=== PATIENT | male | born 1970 | race Caucasian/White ===

== ENCOUNTER 2017-09-01 12:52 | Emergency (ER) | payer MEDICAID, OTHER ==
[~2017-09-01] VITALS: Ht 191.8 cm; Wt 86.0 kg
[~2017-09-01 12:52] MED LIST: CEFU500T66 PO; HYDR-3972 PO; MULT-342 PO
[2017-09-01 14:32] LABS: BASOPHILS % (AUTO) 0.3 % (0-1); EOSINOPHILS % (AUTO) 0 % (0-6); HEMATOCRIT 41.6 % (42.0-52.0); HEMOGLOBIN 14.4 g/dl (14.0-17.9); LYMPHOCYTES # (AUTO) 0.8 X10'3 (1.1-4.8); LYMPHOCYTES % (AUTO) 5.3 % (21-51); MEAN CORPUSCULAR HEMOGLOBIN 29.4 PG (27.0-31.0); MEAN CORPUSCULAR HGB CONC 34.5 % (33.0-36.5); MEAN PLATELET VOLUME 9.6 FL (7.4-10.4); MONOCYTES # (AUTO) 0.6 X10'3 (0-0.9); MONOCYTES % (AUTO) 4.1 % (2-12); NEUTROPHILS # (AUTO) 13.5 X10'3 (1.8-7.7); NEUTROPHILS % (AUTO) 90.3 % (42-75); PLATELET COUNT 105 X10'3 (140-440); RED BLOOD COUNT 4.89 X10'6 (4.70-6.10); RED CELL DISTRIBUTION WIDTH 13.6 % (11.5-14.5); WHITE BLOOD COUNT 14.9 X10'3 (4.5-11.0)
[2017-09-01 14:56] LABS: ALANINE AMINOTRANSFERASE 20 U/L (12-78); ALBUMIN 3.5 G/DL (3.4-5.0); ALBUMIN/GLOBULIN RATIO 1.1 (1.1-1.5); ALKALINE PHOSPHATASE 53 IU/L (46-116); ANION GAP 9 (8-16); ASPARTATE AMINO TRANSFERASE 21 U/L (10-37); BILIRUBIN,TOTAL 0.4 MG/DL (0.1-1.0); BLOOD UREA NITROGEN 16 MG/DL (7-18); BUN/CREATININE RATIO 13.6 (5.4-32.0); CALCIUM 8.5 MG/DL (8.5-10.1); CHLORIDE 101 MMOL/L (99-107); CREATININE 1.18 MG/DL (0.60-1.10); ETHANOL < 0.010 GM/DL (0.0-0.010); GLUCOSE 126 MG/DL (70-104); POTASSIUM 3.4 MMOL/L (3.5-5.1); SODIUM 135 MMOL/L (135-145); TOTAL CARBON DIOXIDE 24.8 MMOL/L (24-32); TOTAL PROTEIN 6.8 G/DL (6.4-8.2); eGFR 66 ML/MIN
[2017-09-01 15:42] LABS: URINE AMPHETAMINE SCREEN NEGATIVE (Neg); URINE BARBITUATE SCREEN NEGATIVE (Neg); URINE BENZODIAZEPINES SCREEN NEGATIVE (Neg); URINE CANNABINOID SCREEN POSITIVE (Neg); URINE COCAINE SCREEN NEGATIVE (Neg); URINE METHADONE SCREEN NEGATIVE (Neg); URINE OPIATE SCREEN NEGATIVE (Neg); URINE PHENCYCLIDINE SCREEN NEGATIVE (Neg)
[2017-09-01] MEDS ORDERED: KEP500T PO (16:29)
[2017-09-01] MEDS ORDERED: levetiracetam 250mg tablet PO ONE (16:30)
[2017-09-01 16:57] VITALS: BP 168/88
== END 2017-09-01 17:02 | disposition home or self-care (01) ==
LOC: ER 12:54
DX: R56.9 Unspecified convulsions (principal); R51 Headache; F17.200 Nicotine dependence, unspecified, uncomplicated; F12.90 Cannabis use, unspecified, uncomplicated; Z90.49 Acquired absence of other specified parts of digestive tract; Z79.899 Other long term (current) drug therapy
CPT/HCPCS: 36415; 70450; 80053; 80305; 80320; 85025; 99285

== ENCOUNTER 2017-11-12 09:27 | Outpatient (CLI) | payer MEDICAID ==
[~2017-11-12 09:27] MED LIST changes: +KEP500T PO
== END 2017-11-12 23:59 | disposition home or self-care (01) ==
LOC: RAD 09:27
DX: R56.9 Unspecified convulsions (principal); F17.200 Nicotine dependence, unspecified, uncomplicated
CPT/HCPCS: 95819

== ENCOUNTER 2019-11-21 10:28 | Inpatient (IN) | payer MEDICAID ==
[~2019-11-21] VITALS: Ht 190.5 cm; Wt 90.9 kg
[2019-11-21] MEDS ORDERED: levetiracetam inj 1,000 MG in normal saline 100ml IV soln 90 ML IV STA (10:29)
[2019-11-21] MEDS ORDERED: LORazepam 2 mg/ml vial IV ONE (10:30)
[2019-11-21] MEDS ORDERED: normal saline 1000ML IV soln IVB ONE (10:30)
[2019-11-21] MEDS ORDERED: magnesium 2GM in 50ml NS 50 ML IV ONE (10:30)
[2019-11-21] MEDS ORDERED: levetiracetam-NS 1000mg/100ml 100 ML IV STA (10:34)
--- NOTE | 2019-11-21 10:42 | NUR ---
pt lifted arms up once, but still unable to arouse.
--- NOTE | 2019-11-21 10:45 | NUR ---
dianna bedside wants pt on nc 2 liters.
[2019-11-21 10:50] LABS: BASOPHILS # (AUTO) 0.1 X10'3 (0-0.2); BASOPHILS % (AUTO) 0.6 % (0-1); EOSINOPHILS % (AUTO) 0.2 % (0-6); HEMATOCRIT 47.4 % (42.0-52.0); HEMOGLOBIN 15.5 g/dl (14.0-17.9); LYMPHOCYTES # (AUTO) 1.6 X10'3 (1.1-4.8); LYMPHOCYTES % (AUTO) 9.1 % (21-51); MEAN CORPUSCULAR HEMOGLOBIN 28.7 PG (27.0-31.0); MEAN CORPUSCULAR HGB CONC 32.6 g/dL (33.0-36.5); MEAN CORPUSCULAR VOLUME 88.1 FL (78-98); MEAN PLATELET VOLUME 9.7 FL (7.4-10.4); MONOCYTES # (AUTO) 0.7 X10'3 (0-0.9); NEUTROPHILS # (AUTO) 14.9 X10'3 (1.8-7.7); NEUTROPHILS % (AUTO) 86.1 % (42-75); PLATELET COUNT 133 X10'3 (140-440); RED BLOOD COUNT 5.38 X10'6 (4.70-6.10); RED CELL DISTRIBUTION WIDTH 13.4 % (11.5-14.5); WHITE BLOOD COUNT 17.3 X10'3 (4.5-11.0)
[2019-11-21 11:19] LABS: CLARITY,URINE SLIGHTLY CLOUDY (Clear); COLOR,URINE YELLOW (Yellow); GLUCOSE, URINE NEGATIVE (Neg); KETONES,URINE NEGATIVE (Neg); LEUKOCYTE ESTERASE ,URINE NEGATIVE (Neg); NITRITES, URINE NEGATIVE (Neg); OCCULT BLOOD,URINE LARGE (Neg); PH,URINE 5.5 (4.8-8.0); PROTEIN,URINE 30 mg/dl (Neg); UA COLLECTION TYPE STRAIGHT CATH; UROBILINOGEN,URINE 0.2 E.U/dL (0.2-1.0)
--- NOTE | 2019-11-21 11:19 | NUR ---
2 LITERS OF FLUID IN, PT ON MONITORS TO GO TO CT WITH RYAN QUINTANILLA RN
[2019-11-21 11:22] LABS: ALANINE AMINOTRANSFERASE 34 U/L (12-78); ALBUMIN 4.3 G/DL (3.4-5.0); ALBUMIN/GLOBULIN RATIO 1.1 (1.1-1.5); ALKALINE PHOSPHATASE 60 IU/L (46-116); ANION GAP 27 (8-16); ASPARTATE AMINO TRANSFERASE 34 U/L (10-37); BILIRUBIN,TOTAL 0.3 MG/DL (0.1-1.0); BLOOD UREA NITROGEN 25 MG/DL (7-18); BUN/CREATININE RATIO 15.7 (5.4-32.0); CALCIUM 9.7 MG/DL (8.5-10.1); CHLORIDE 102 MMOL/L (99-107); CREATININE 1.59 MG/DL (0.60-1.10); ETHANOL < 0.010 GM/DL (0.0-0.010); GLUCOSE 195 MG/DL (70-104); POTASSIUM 3.8 MMOL/L (3.5-5.1); SODIUM 140 MMOL/L (135-145); TOTAL PROTEIN 8.1 G/DL (6.4-8.2); eGFR 46 ML/MIN
[2019-11-21 11:23] LABS: CREATINE KINASE 1088 U/L (39-308)
[2019-11-21 11:24] LABS: TOTAL CARBON DIOXIDE 11.1 MMOL/L (24-32)
[2019-11-21 11:26] LABS: HYALINE CASTS 0-3 /LPF (NEGATIVE); MUCUS STRANDS FEW /LPF (Neg); SQUAMOUS EPITHELIAL CELL,UR FEW /LPF (FEW)
[2019-11-21 11:27] LABS: WBC,URINE 0-4 /HPF (0-4)
[2019-11-21 11:29] LABS: AMORPHOUS URATES 3+; BACTERIA,URINE FEW /HPF (Neg)
[2019-11-21 11:30] LABS: URINE AMPHETAMINE SCREEN NEGATIVE (Neg); URINE BARBITUATE SCREEN NEGATIVE (Neg); URINE BENZODIAZEPINES SCREEN POSITIVE (Neg); URINE CANNABINOID SCREEN POSITIVE (Neg); URINE COCAINE SCREEN NEGATIVE (Neg); URINE METHADONE SCREEN NEGATIVE (Neg); URINE OPIATE SCREEN NEGATIVE (Neg); URINE PHENCYCLIDINE SCREEN NEGATIVE (Neg)
--- NOTE | 2019-11-21 11:30 | NUR ---
WILL LYNCHTRAVIS UPDATED. PT LAST NORMAL LAST NIGHT AT 8:30 BED. PT FOUND HIM ON COUCH THIS AM WITH ABRAISON ON HEAD, SEIZING. UNCONTROLLED SHAKING, BREATHING HARD, VOMITED. PT WOKE UP CLEAR 30MIN LATER. DAUGHTER PRESENT, ANOTHER SEIZURE SO THEY CALLED 911. NO HOME MEDS, MJ AND QUIT SMOKING 3 MONTHS AGO. PT NORMAL BASELINE A AND O 4.
--- NOTE | 2019-11-21 11:30 | NUR ---
Patient combative in CT. Spoke to Best Hansen who gives verbal to administer ativan which is over-ridden from omnicell.
[2019-11-21] MEDS ORDERED: LORazepam 2 mg/ml vial ONE (11:32)
--- NOTE | 2019-11-21 11:57 | NUR ---
PT RETURNED FROM CT. PT GIVEN 2MG ATIVAN FOR CONBATIVE BEHAVIOR WHILE IN CT. PIV IN RT HAND WAS PULLED OUT BY PT. MAG AND NS RESTARTED AFTER PT RETURNED TO HIS ROOM
[2019-11-21] MEDS ORDERED: NO HOME MEDS (12:02)
--- NOTE | 2019-11-21 12:59 | NUR ---
CALLED WILL , PT STAYING NIGHT PER SHAI. VERIFIED GLASSES AND PHONE AT BEDSIDE.
--- NOTE | 2019-11-21 14:10 | NUR ---
REORIENTED PT, PT KNOWS NOT TO GET OUT OF BED. PT SAID IF RESTRAINTS REMOVED HE IS LEAVING. NOTIFIED WARE CARRIER THAT PT IS FALL RISK, SHE CALLED NURSING SUP, NO SITTER PROVIDED OR AVAILABLE.
--- NOTE | 2019-11-21 14:47 | NUR ---
RELIEVING RN FOR BREAK, PT RESTING QUIETLY ON GURNEY, RESP EVEN AND UNLABORED
[2019-11-21] MEDS ORDERED: ondansetron/PF 4mg/2ml inj IV PRN (14:55)
[2019-11-21] MEDS ORDERED: magnesium 4gm in 100ml NS 100 ML IV PRN (14:55)
[2019-11-21] MEDS ORDERED: magnesium 2GM in 50ml NS 50 ML IV PRN (14:55)
[2019-11-21] MEDS ORDERED: potassium Cl 20 mEq SR tablet PO PRN ×2 (14:55)
[2019-11-21] MEDS ORDERED: potassium CL 10mEq/100ml bag 100 ML IV PRN ×2 (14:55)
[2019-11-21] MEDS ORDERED: magnesium Cl slow-release 64mg tablet PO PRN (14:55)
[2019-11-21] MEDS ORDERED: acetaminophen 325mg tablet PO PRN (14:55)
--- NOTE | 2019-11-21 16:10 | NUR ---
PT AWAKE AND ALERT, WANTING TO LEAVE. PT INFORMED THAT HE WAS ILL AND THAT IT WAS NOT SAFE FOR HIM TO LEAVE DUE TO BEING ALTERED AND CONFUSED. PT WANTING TO SPEAK WITH THE PROVIDER. JASSON MATHEW NOTIFIED THAT PT WANTED TO TALK TO THE PROVIDER AND WANTING TO LEAVE. PROVIDER SPOKE WITH PT, PT STATED UNDERSTANDING AND 2 POINT RESTRAINTS WERE REMOVED, BED LINENS CHANGED AND GIVEN A CLEAN GOWN. PT'S RN NOTIFIED THAT RESTRAINTS WERE REMOVED
--- NOTE | 2019-11-21 17:19 | NUR ---
SPOKE TO PT UPDATED.
[2019-11-21 20:00] VITALS: BP 113/57
[2019-11-21] MEDS: K and/or MAG REPLACEMENT MC SCH (20:00)
--- NOTE | 2019-11-21 23:27 | NUR ---
Paged hospitalist. [phone] Roxann Bryant, Just admitted for seizure x2, patient very agitated and trying to leave AMA. Please provide orders to help stabilize patient. Hailey [phone]
[2019-11-22 05:39] LABS: BASOPHILS # (AUTO) 0.1 X10'3 (0-0.2); EOSINOPHILS % (AUTO) 0.2 % (0-6); HEMATOCRIT 40.7 % (42.0-52.0); HEMOGLOBIN 13.5 g/dl (14.0-17.9); LYMPHOCYTES # (AUTO) 1.7 X10'3 (1.1-4.8); MEAN CORPUSCULAR HEMOGLOBIN 28.7 PG (27.0-31.0); MEAN CORPUSCULAR HGB CONC 33.2 g/dL (33.0-36.5); MEAN CORPUSCULAR VOLUME 86.4 FL (78-98); MEAN PLATELET VOLUME 10.6 FL (7.4-10.4); MONOCYTES % (AUTO) 9.1 % (2-12); NEUTROPHILS # (AUTO) 8.4 X10'3 (1.8-7.7); NEUTROPHILS % (AUTO) 74.7 % (42-75); PLATELET COUNT 96 X10'3 (140-440); RED BLOOD COUNT 4.71 X10'6 (4.70-6.10); RED CELL DISTRIBUTION WIDTH 13.4 % (11.5-14.5); WHITE BLOOD COUNT 11.3 X10'3 (4.5-11.0)
[2019-11-22 06:00] VITALS: BP 124/77
--- NOTE | 2019-11-22 06:07 | NUR ---
Patient in room PCU 3018. I have received report from Tara MALDONADO and had the opportunity to ask questions and assume patient care.
--- NOTE | 2019-11-22 06:10 | NUR ---
Problems reprioritized. Patient report given, questions answered & plan of care reviewed with Nela MALDONADO. Patient stable at transfer of care.
[2019-11-22 06:11] LABS: ALBUMIN 3.5 G/DL (3.4-5.0); ANION GAP 13 (8-16); BLOOD UREA NITROGEN 18 MG/DL (7-18); BUN/CREATININE RATIO 13.5 (5.4-32.0); CALCIUM 8.8 MG/DL (8.5-10.1); CHLORIDE 107 MMOL/L (99-107); CREATININE 1.33 MG/DL (0.60-1.10); GLUCOSE 99 MG/DL (70-104); MAGNESIUM 2.3 MG/DL (1.5-2.4); POTASSIUM 3.7 MMOL/L (3.5-5.1); SODIUM 143 MMOL/L (135-145); TOTAL CARBON DIOXIDE 22.8 MMOL/L (24-32); eGFR 57 ML/MIN
--- NOTE | 2019-11-22 06:44 | NUR ---
Patient awake in room, opening all drawers looking for his clothes and wallet, states "I am getting out of here", RN explained that if pt is going to leave it will be against medical advise and RN educated that she highly advises against it, patient took off satellite project site monitor and called his /son who stated that they would come roll picker the patient. Patient was okay with reapplying satellite project site monitor, said he would wait for his to call him.
[2019-11-22 07:13] LABS: LARGE PLATELETS FEW
[2019-11-22 07:14] LABS: HYPOGRANULAR PLATELETS MODERATE; PLATELET ESTIMATE DECREASED
[2019-11-22] MEDS: K and/or MAG REPLACEMENT MC SCH (07:48)
--- NOTE | 2019-11-22 07:54 | NUR ---
Sent a page to Dr Trent PAGER ID: [phone] MESSAGE: Nela MALDONADO [phone], Mercedes Bryant, pt trying to leave AMA, I have convinced him to stay, if he stays do you want to order any medications?? Addendum: 11/22/19 at 9879 by Brenda Pelayo RN Spoke with Dr Trent, wants pt to receive Keppra 500mg BID and for RN to order Tele Neurology Consult
[2019-11-22] MEDS ORDERED: levetiracetam 250mg tablet PO SCH (08:00)
[2019-11-22] MEDS ORDERED: levetiracetam 250mg tablet ONE (08:21)
--- NOTE | 2019-11-22 08:29 | NUR ---
Patient refused to let RN perform physical assessment, pt stated "it doesn't matter because I am leaving in a little bit". Patient was okay with taking Keppra. Will continue to monitor the patient closely.
--- NOTE | 2019-11-22 08:51 | NUR ---
Tele neuro computer placed in the patients room, called [facility] to set up apt.
--- NOTE | 2019-11-22 12:43 | NUR ---
Sent a page to Dr Trent PAGER ID: [phone] MESSAGE: Nela MALDONADO [phone] Mercedes Bryant, do you want to send this patient home on Keppra or any anti seizure meds? thanks Addendum: 11/22/19 at 1254 by Brenda Pelayo RN Spoke with Dr Trent, per she asked RN to ask the patient if he would even take the Keppra if prescribed, RN asked the patient, pt stated, "I will take the medication if it helps". PAGER ID: [phone] MESSAGE: Nela MALDONADO [phone] Mercedes Bryant, pt said he would take the Keppra, thanks!
[2019-11-22] MEDS ORDERED: LEVE250T PO (13:00)
--- NOTE | 2019-11-22 13:06 | NUR ---
Stable for discharge per MD order, all discharge instructions reviewed with patient and all questions answered, educated pt that he needs to get a PCP so he can have a neurology follow up, pt stated "I'm not going to". New prescriptions sent to [facility] on [address], pt is agreeable to taking it, pt ambulated well in hallway prior to discharge, Tele monitor and PIV discontinued, all belongings collected and sent with patient, walked off the unit with nurses aide at 1306 to private vehicle.
--- NOTE | 2019-11-22 13:24 | NUR ---
Called Mary prescription into [facility] on [address] in [place]
== END 2019-11-22 13:05 | disposition home or self-care (01) | DRG 53 ==
LOC: ER 10:28 → ED HOLD 14:53 → PCU 3S 19:17
PROVIDERS: ADMIT Internal Medicine; ATTEND Internal Medicine
DX: G40.909 Epilepsy, unspecified, not intractable, without status epilepticus (principal); M62.82 Rhabdomyolysis
CPT/HCPCS: 36415; 70450; 71045; 80048; 80053; 80305; 80320; 81001; 82140; 82550; 83735; 85025; 87081; 93005; 96365; 96375; 99291; G0378; J1953; J2060; J3475; J7030

== ENCOUNTER 2022-10-28 13:54 | Emergency (ER) | payer MEDICAID ==
[~2022-10-28] VITALS: Ht 191.8 cm; Wt 94.1 kg
[~2022-10-28 13:54] MED LIST changes: -CEFU500T66 PO; -HYDR-3972 PO; -KEP500T PO; +LEVE250T PO; -MULT-342 PO; +NO HOME MEDS
[2022-10-28] MEDS ORDERED: HYDROcodone/acetaminophen 10/325mg tab PO ONE (16:40)
[2022-10-28] MEDS ORDERED: ibuprofen tablet 400 MG TABLET PO ONE (16:40)
[2022-10-28] MEDS ORDERED: HYDR-3973 PO ×3 (16:43→16:46)
[2022-10-28] MEDS ORDERED: CYCL-1 PO ×3 (16:43→16:46)
[2022-10-28 17:04] VITALS: BP 135/72; PULSE 78; RESP 17; TEMP 97.6; O2SAT 98
== END 2022-10-28 17:07 | disposition home or self-care (01) ==
LOC: ER 13:54
DX: S20.212A Contusion of left front wall of thorax, initial encounter (principal); F12.90 Cannabis use, unspecified, uncomplicated; Z90.49 Acquired absence of other specified parts of digestive tract; Z98.890 Other specified postprocedural states; Z79.899 Other long term (current) drug therapy; W22.11XA Striking against or struck by driver side automobile airbag, initial encounter; Y93.89 Activity, other specified; Y92.89 Other specified places as the place of occurrence of the external cause; Y99.8 Other external cause status
CPT/HCPCS: 71250; 74176; 93005; 99284

== ENCOUNTER 2024-03-15 10:01 | Emergency (ER) | payer MEDICAID ==
[~2024-03-15] VITALS: Ht 190.5 cm; Wt 92.2 kg
[~2024-03-15 10:01] MED LIST changes: +CYCL-1 PO; +HYDR-3973 PO
[2024-03-15] MEDS: normal saline 1000ML IV soln IVB ONE (11:44)
[2024-03-15] MEDS: methylPREDNISolone sod succ 125mg/2ml vial IV ONE (11:44)
[2024-03-15 11:48] LABS: BASOPHILS # (AUTO) 0.1 X10'3 (0-0.2); BASOPHILS % (AUTO) 1.1 % (0-1); EOSINOPHILS # (AUTO) 0.3 X10'3 (0-0.9); EOSINOPHILS % (AUTO) 3.5 % (0-6); HEMATOCRIT 44.7 % (42.0-52.0); HEMOGLOBIN 15.1 g/dl (14.0-17.9); LYMPHOCYTES # (AUTO) 1.6 X10'3 (1.1-4.8); MEAN CORPUSCULAR HEMOGLOBIN 28.5 PG (27.0-31.0); MEAN CORPUSCULAR HGB CONC 33.8 g/dL (33.0-36.5); MEAN CORPUSCULAR VOLUME 84.3 FL (78-98); MEAN PLATELET VOLUME 9.5 FL (7.4-10.4); MONOCYTES # (AUTO) 0.9 X10'3 (0-0.9); MONOCYTES % (AUTO) 8.6 % (2-12); NEUTROPHILS % (AUTO) 70.8 % (42-75); PLATELET COUNT 195 X10'3 (140-440); RED CELL DISTRIBUTION WIDTH 13.7 % (11.5-14.5); WHITE BLOOD COUNT 9.9 X10'3 (4.5-11.0)
[2024-03-15] MEDS: ipratropium/albuterol 3ml nebule NEB ONE (12:02)
[2024-03-15 12:03] VITALS: PULSE 70; PULSE 71; RESP 12; RESP 14; O2SAT 99
[2024-03-15 13:04] LABS: ALBUMIN 3.2 G/DL (3.4-5.0); ANION GAP 6 (8-16); BLOOD UREA NITROGEN 14 MG/DL (7-18); BUN/CREATININE RATIO 20.6 (10.0-20.0); CALCIUM 8.7 MG/DL (8.5-10.1); CHLORIDE 103 MMOL/L (99-107); CREATININE 0.68 MG/DL (0.60-1.10); GLUCOSE 93 MG/DL (70-104); POTASSIUM 4.2 MMOL/L (3.5-5.1); PRO BRAIN NATRIURETIC PEPTIDE 40 PG/ML (0-125); SODIUM 140 MMOL/L (135-145); TOTAL CARBON DIOXIDE 31.4 MMOL/L (24-32); eCRCL 147 ML/MIN; eGFR > 90 ML/MIN
[2024-03-15] MEDS ORDERED: BUDE10.22 INH (15:07)
[2024-03-15] MEDS ORDERED: ALBU8HFA INH (15:07)
[2024-03-15 15:23] VITALS: BP 125/84; PULSE 71; RESP 16; TEMP 98.6; O2SAT 92
== END 2024-03-15 15:24 | disposition home or self-care (01) ==
LOC: ER 10:02
DX: J44.9 Chronic obstructive pulmonary disease, unspecified (principal); F12.90 Cannabis use, unspecified, uncomplicated; Z87.891 Personal history of nicotine dependence; Z90.49 Acquired absence of other specified parts of digestive tract; Z98.890 Other specified postprocedural states; Z20.822 Contact with and (suspected) exposure to COVID-19
CPT/HCPCS: 36415; 71046; 80048; 83605; 83880; 85025; 87502; 87503; 87811; 93005; 94640; 96361; 96374; 99285; J2919; J7030; 94760

== ENCOUNTER 2024-10-12 09:54 | Outpatient (CLI) | payer MEDICAID ==
[~2024-10-12] VITALS: Ht 186.1 cm; Wt 94.3 kg
[~2024-10-12 09:54] MED LIST changes: +ALBU8HFA INH; +BUDE10.22 INH
[2024-10-12 10:54] VITALS: PULSE 82; RESP 16; O2SAT 95
[2024-10-12] MEDS: albuterol 2.5 MG/3 ML nebule NEB ONE (10:54)
[2024-10-12 11:06] VITALS: PULSE 77; RESP 16
--- NOTE | 2024-10-12 17:18 | PROCEDURE NOTE - Respiratory ---
Procedure Note-Respiratory Providers to CC Copies To 1: ALEJANDRO CORTEZ NP Procedure Name: This is a spirometry study dated October 12, 2024. The spirometry study was performed both before and after inhaled bronchodilator. Spirometry measurements: The forced vital capacity is in the lower range of normal. The FEV1 is severely reduced. The FEV1 ratio is severely reduced. All of the measured flow rates are quite low. After inhaled bronchodilator there is small but significant improvement in the FEV1 and the flow rates. Overall conclusion: This study shows severe abnormality. There is evidence for obstructive ventilatory defect in the severe category. The patient improves only slightly with inhaled bronchodilator. 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 There may be an element of asthma as well. This patient should continue to use an aggressive bronchodilator program which includes inhaled corticosteroid as well as a long-acting beta agonist. A long- acting anticholinergic medication may also help this patient. We have no previous studies for comparison. Close pulmonary follow-up is recommended. JOSEE AMIN MD Oct 12, 2024 17:18
== END 2024-10-12 23:59 | disposition home or self-care (01) ==
LOC: RT 09:54
PROVIDERS: ATTEND Nurse Practitioner Family
DX: R06.09 Other forms of dyspnea (principal); J98.8 Other specified respiratory disorders
CPT/HCPCS: 94060; 94760